=== PATIENT | female | born 1945 | race Caucasian/White ===

== ENCOUNTER → 2018-08-03 | Outpatient (CLI) | payer OTHER | LOC: M.MRI 07-24 15:16 | DX: M16.11 Unilateral primary osteoarthritis, right hip (principal); M70.61 Trochanteric bursitis, right hip; R20.2 Paresthesia of skin; R60.0 Localized edema; Y93.9 Activity, unspecified; Z79.899 Other long term (current) drug therapy ==

== ENCOUNTER 2018-10-01 06:40 | Inpatient (IN) | payer OTHER ==
[2018-09-20 09:07] LABS: ABSOLUTE EOSINOPHILS 0.1 thou/uL (0.0-0.7); ABSOLUTE LYMPHOCYTES 1.8 thou/uL (0.8-5.3); ABSOLUTE MONOCYTES 0.6 thou/uL (0.0-1.2); ABSOLUTE NEUTROPHILS 4.8 thou/uL (1.6-8.1); BASOPHILS 0.6 %; EOSINOPHILS 1.4 %; HEMATOCRIT 45.3 % (37.0-47.0); HEMOGLOBIN 15.8 gm/dL (12.0-15.0); LYMPHOCYTES 23.8 %; MCH 32.1 pg (26.0-34.0); MCV 91.9 fL (80.0-100.0); MONOCYTES 8.8 %; MPV 9.6 fl. (7.2-11.1); NUCLEATED RBCS 0 /100WBC; PLATELET COUNT* 269 thou/uL (150-400); POLYS 65.4 %; RBC 4.93 mil/uL (4.20-5.00); RDW-CV 13.1 % (10.5-14.5); WBC 7.3 thou/uL (4.0-11.0)
[2018-09-20 09:15] LABS: APTT 29.4 Seconds (25.0-31.3); PROTIME 10.7 Seconds (9.20-11.50)
[2018-09-20 09:18] LABS: ALBUMIN 3.6 g/dL (3.4-5.0); CALCIUM 8.9 mg/dL (8.5-10.1); CREATININE 0.9 mg/dL (0.6-1.3); POTASSIUM 3.1 mmol/L (3.5-5.1); TOTAL BILIRUBIN 0.4 mg/dL (<0.1-1.0); TOTAL PROTEIN 7.7 g/dL (6.4-8.2)
[2018-09-20 10:19] LABS: ESR (SEDRATE) 8 mm/hr (0-30)
[2018-09-20 19:08] LABS: GLYCOHEMOGLOBIN (HGB A1C) 5.5 % (4.8-5.6)
--- NOTE | 2018-09-21 10:19 | EKG ---
[place] [address] ELECTROCARDIOGRAM REPORT Name: YENI AGARWAL Room: PRE IN [facility].#: [id number] Admission: Attend Phys: Zohaib Read Discharge: Date of : 47 Report #: [id number] THIS REPORT FOR: //name// [facility] Test Date: 2018-09-20 Test Time: 09:24:43 Pat Name: YENI AGARWAL Department: Room: Gender: F Quality Specialist: : [id number] Requested By: tM Murphy Order Number: [id number] Reading MD: Edgardo Mercado Measurements Intervals [place] Rate: 77 P: 58 VT: 184 QRS: -45 QRSD: 101 T: 33 QT: 412 QTc: 467 Interpretive Statements Sinus rhythm Inferior infarct, old No previous ECG available for comparison Electronically Signed On 09-21-2018 10:19:18 [employer] MACHINE [employer] by Edgardo Mercado [email or web address] <ELECTRONICALLY SIGNED> By: Edgardo Mercado MD, [facility] 09/21/18 1019 0924 0924 Edgardo Mercado MD, FACC /EPI
[~2018-10-01] VITALS: Ht 160 cm; Wt 86.2 kg
[~2018-10-01 06:40] MED LIST: OMEPRAZOLE40 MG PO; PRAVACHOL40 MG PO; SYNTHROID100 MC1 PO; TRIAMTERENE-HC1 EAC2 PO
[2018-10-01 14:35] VITALS: BP 126/67
[2018-10-01 15:56] VITALS: BP 125/72
[2018-10-01 20:10] VITALS: BP 116/72
[2018-10-02] VITALS (7 sets, daily range): BP systolic 104–141; BP diastolic 56–75
[2018-10-02 04:45] LABS: HEMATOCRIT 38.1 % (37.0-47.0); HEMOGLOBIN 13.3 gm/dL (12.0-15.0)
[2018-10-02] MEDS ORDERED: ELIQUIS2.5 MG PO (12:11)
[2018-10-02] MEDS ORDERED: OXYCODONE HCL10 MG PO (12:13)
== END 2018-10-02 13:30 | disposition home health service (06) | DRG 470 ==
LOC: M.PRE 06:40 → M.TBA 08:37 → M.PRE 08:38 → M.ORTHSURG 13:57
PROVIDERS: Orthopaedic Surgery; ADMIT Internal Medicine
PROC: 0SR901Z Replacement of Right Hip Joint with Metal Synthetic Substitute, Open Approach (ICD-10-PCS; principal; 2018-10-01)
DX: M16.11 Unilateral primary osteoarthritis, right hip (principal); E03.9 Hypothyroidism, unspecified; K21.9 Gastro-esophageal reflux disease without esophagitis; E78.5 Hyperlipidemia, unspecified; I10 Essential (primary) hypertension; Z90.49 Acquired absence of other specified parts of digestive tract; Z90.710 Acquired absence of both cervix and uterus; Z98.42 Cataract extraction status, left eye; Z98.41 Cataract extraction status, right eye; Z79.899 Other long term (current) drug therapy

== ENCOUNTER → 2018-10-12 | Day surgery (SDC) | payer OTHER ==
[~2018-10-12] VITALS: Ht 160 cm; Wt 86.2 kg
[~2018-10-12] MED LIST changes: +ASPIRIN325 PO; +ELIQUIS2.5 MG PO; +KEFLEX500 M1 PO; +OXYCODONE HCL10 MG PO
[2018-10-12 12:45] VITALS: BP 126/70
[2018-10-12 15:34] VITALS: BP 126/70
--- NOTE | 2018-10-14 08:30 | OP ---
[address] [address] OPERATIVE REPORT Name: YENI AGARWAL Room: [facility]#: [id number] Admission: 10/12/18 Attend Phys: Shaan Rincon DO Discharge: Date of : 47 Report #: [id number] THIS REPORT FOR: //name// CC: [facility] DICTATED BY: Joni Montalvo DO DATE OF SERVICE: 10/12/2018 PREOPERATIVE DIAGNOSIS: Right hip postoperative hematoma. POSTOPERATIVE DIAGNOSIS: Right hip postoperative hematoma. PROCEDURE: Incision and drainage of right hip postoperative hematoma down to the level of deep fascia. SURGEON: Shaan Rincon DO. COMPRESSOR STATIONS SUPERINTENDENT: Joni Montalvo DO. PREOPERATIVE ANTIBIOTICS: 2 grams Ancef. DRAINS: Incisional Prevena wound VAC. COMPLICATIONS: None. SPECIMEN: None. CONDITION: The patient is stable to PACU. INDICATIONS FOR PROCEDURE: This is a 73-year-old female underwent right total hip arthroplasty approximately 11 days ago. She was seen in the clinic today for drainage of her right hip and elected to proceed with incision and drainage of the right hip. DESCRIPTION OF PROCEDURE: Once written and verbal consent was obtained, the patient was taken to the preoperative holding area to the operating suite. Given the benefit of general anesthesia, the right hip was sterilely prepped with ChloraPrep x 2, was sterilely draped in a mannerly fashion. Timeout was performed to verify the correct operative site, location and procedure. A 5 cm distal aspect of the incision was opened up and serous hematoma was evacuated from the incision. There was no purulence. There was no odorous material and all tissue appeared to be healthy and normal postoperative changes. Three liters of saline was irrigated through the incision. [place] [address] OPERATIVE REPORT Name: YENI AGARWAL Room: [facility]#: [id number] Admission: 10/12/18 Attend Phys: Shaan Rincon DO Discharge: Date of : 47 Report #: [id number] deep fascia. All irrigation was removed from the hip and the incision was then closed with a 2-0 Monocryl suture and richard. A Prevena incisional wound VAC was placed over the incision. The patient was awakened, taken to PACU in stable condition. <ELECTRONICALLY SIGNED> By: Shaan Rincon DO 10/14/18 0830 1504 1534Aurbano Rincon DO /nt
== END | disposition home or self-care (01) ==
LOC: M.SURMM 11:59
DX: M96.841 Postprocedural hematoma of a musculoskeletal structure following other procedure (principal); M16.11 Unilateral primary osteoarthritis, right hip; E03.9 Hypothyroidism, unspecified; E78.5 Hyperlipidemia, unspecified; K21.9 Gastro-esophageal reflux disease without esophagitis; Z90.49 Acquired absence of other specified parts of digestive tract; Z90.710 Acquired absence of both cervix and uterus; Z96.641 Presence of right artificial hip joint; Z79.899 Other long term (current) drug therapy; Z79.82 Long term (current) use of aspirin

== ENCOUNTER → 2018-12-17 | Outpatient (CLI) | payer OTHER | LOC: M.LAB 05:40 | DX: E87.6 Hypokalemia (principal) ==

== ENCOUNTER → 2019-04-08 | Outpatient (CLI) | payer OTHER | LOC: M.RAD 10:30 | DX: Z12.31 Encounter for screening mammogram for malignant neoplasm of breast (principal); M85.89 Other specified disorders of bone density and structure, multiple sites; M81.0 Age-related osteoporosis without current pathological fracture; Z78.0 Asymptomatic menopausal state ==

== ENCOUNTER → 2020-05-05 | Outpatient (CLI) | payer OTHER | LOC: M.RAD 09:55 | PROVIDERS: ATTEND Orthopaedic Surgery | DX: M25.551 Pain in right hip (principal); M76.11 Psoas tendinitis, right hip; M16.11 Unilateral primary osteoarthritis, right hip ==